=== PATIENT | male | born 1995 | race African-American/Black ===

== ENCOUNTER 2017-08-10 13:03 | Emergency (ER) | payer OTHER, SELFPAY | END 2017-08-10 14:21 | disposition home or self-care (01) | LOC: ERS 13:03 | DX: K02.9 Dental caries, unspecified (principal); F17.210 Nicotine dependence, cigarettes, uncomplicated | CPT/HCPCS: 99406 ==

== ENCOUNTER 2017-11-05 21:03 | Emergency (ER) | payer SELFPAY | END 2017-11-05 21:15 | LOC: ERS 21:03 | DX: T40.7X1A Poisoning by cannabis (derivatives), accidental (unintentional), initial encounter (principal); F17.210 Nicotine dependence, cigarettes, uncomplicated | CPT/HCPCS: 99283 ==

== ENCOUNTER 2017-12-24 12:01 | Emergency (ER) | payer SELFPAY ==
[2017-12-24] MEDS ORDERED: HYDROcodone/Acetaminophen 10/325 mg Tablet ONE (12:50)
[2017-12-24] MEDS ORDERED: Diazepam 5 MG TAB ONE (12:50)
== END 2017-12-24 13:14 | disposition home or self-care (01) ==
LOC: ERS 12:01
DX: S39.012A Strain of muscle, fascia and tendon of lower back, initial encounter (principal); F17.210 Nicotine dependence, cigarettes, uncomplicated; Z79.899 Other long term (current) drug therapy; X50.0XXA Overexertion from strenuous movement or load, initial encounter; Y99.0 Civilian activity done for income or pay
CPT/HCPCS: 99283

== ENCOUNTER 2020-07-30 15:06 | Emergency (ER) | payer SELFPAY ==
[2020-07-30 20:53] LABS: SARS-CoV-2 PCR by NAA Not Detected (NotDetected)
== END 2020-07-30 15:30 | disposition home or self-care (01) ==
LOC: ERS 15:06
DX: R51.9 Headache, unspecified (principal); Z20.822 Contact with and (suspected) exposure to COVID-19; F17.210 Nicotine dependence, cigarettes, uncomplicated
CPT/HCPCS: 87635; 99283; U0003; U0005

== ENCOUNTER 2021-07-21 16:32 | Emergency (ER) | payer SELFPAY | END 2021-07-21 20:59 | disposition left against medical advice (07) | LOC: ERS 16:32 | DX: Z53.21 Procedure and treatment not carried out due to patient leaving prior to being seen by health care provider (principal) ==